=== PATIENT | male | born 1975 | race Caucasian/White ===

== ENCOUNTER 2019-04-04 19:47 | Emergency (ER) | payer SELFPAY ==
[~2019-04-04] VITALS: Ht 175.3 cm; Wt 89.0 kg
[2019-04-04] MEDS ORDERED: SODIUM CHLORIDE 0.9% 1,000 ML IV ONE (21:41)
[2019-04-04 22:08] LABS: BASOPHILS % 0.3 % (0.0-2.0); HEMATOCRIT. 44.7 % (42.0-52.0); HEMOGLOBIN. 15.3 g/dL (14.0-18.0); LYMPHOCYTES % 19.7 % (20.0-50.0); MEAN CORPUSCULAR HEMOGLOBIN 30.5 pg (28.0-32.0); MEAN PLATELET VOLUME 6.7 fl (7.4-10.4); MONOCYTES % 4.9 % (2.0-8.0); NEUTROPHILS % 75.1 % (40.0-76.0); PLATELET 313 x1000/uL (130-400); RED BLOOD CELL COUNT 5.02 mill/uL (4.7-6.1); RED CELL DISTRIBUTION WIDTH 13.4 % (11.6-14.6)
[2019-04-04 22:13] LABS: CHLORIDE 106 mEq/L (98-107)
[2019-04-04 22:18] LABS: ETHANOL BLOOD 296 mg/dL
[2019-04-05] MEDS ORDERED: LORAZEPAM 2MG/ML CPJ IV ONE ×2 (01:45→06:30)
[2019-04-05] MEDS ORDERED: CHLORDIAZEPOXIDE 25MG CAPSULE PO ONE (02:00)
[2019-04-05 06:55] VITALS: BP 154/79
== END 2019-04-05 07:13 | disposition home or self-care (01) ==
LOC: ER 19:47
DX: F10.229 Alcohol dependence with intoxication, unspecified (principal); Y90.8 Blood alcohol level of 240 mg/100 ml or more; I10 Essential (primary) hypertension
CPT/HCPCS: 36415; 80053; 80307; 80320; 80329; 85025; 96374; 96376; 99283; J2060; J7030; Z7610; G0480